=== PATIENT | female | born 1995 | race Two or more races ===

== ENCOUNTER 2018-07-23 14:53 | Outpatient (CLI) | payer OTHER ==
[2018-07-23] MEDS: ACETAMINOPHEN 500 MG TAB PO (16:10)
== END 2018-07-23 17:24 | disposition home or self-care (01) ==
LOC: M LDO 14:53
DX: O26.893 Other specified pregnancy related conditions, third trimester (principal); R10.30 Lower abdominal pain, unspecified; R10.2 Pelvic and perineal pain; Z3A.34 34 weeks gestation of pregnancy
CPT/HCPCS: 59025

== ENCOUNTER → 2018-08-22 | Outpatient (REF) | payer OTHER | LOC: M LAB REF 17:00 | DX: Z34.83 Encounter for supervision of other normal pregnancy, third trimester (principal) ==

== ENCOUNTER 2018-09-01 11:34 | Inpatient (IN) | payer OTHER ==
[2018-09-01] MEDS: LR 1,000 ML IV ×2 (12:55→17:12)
[2018-09-01 13:05] LABS: HEMATOCRIT 32.4 % (36.0-47.0); HEMOGLOBIN 10.9 g/dl (12.0-15.5); MEAN CORPUSCULAR HEMOGLOBIN 31.3 pg (27.0-33.0); MEAN CORPUSCULAR HGB CONC 33.6 g/dl (32.0-36.5); MEAN CORPUSCULAR VOLUME 93.1 fl (80.0-96.0); PLATELET COUNT, AUTOMATED 226 10^3/uL (150-450); RED BLOOD COUNT 3.48 10^6/uL (4.00-5.40); RED CELL DISTRIBUTION WIDTH 13.4 % (11.5-14.5)
[2018-09-01] MEDS: OXYTOCIN DRIP 30 UNITS in APPROPRIATE DILUENT 1 EA IV (13:13)
[2018-09-01] MEDS ORDERED: FENTANYL 2MCG/ML ROPIVACAINE 0.2% IN 0.9% NACL 100ML IVBAG As Ordered (19:42)
[2018-09-01] MEDS ORDERED: NALOXONE INJ 0.4 MG/1 ML VIAL (J2310) IV (20:00)
[2018-09-01] MEDS ORDERED: EPIDURAL/PCA KEYS XX (20:00)
[2018-09-01] MEDS ORDERED: EPIDURAL COMMENT XX (20:00)
[2018-09-01] MEDS ORDERED: LACTATED RINGER'S 1000 ML IV (20:00)
[2018-09-01] MEDS ORDERED: ePHEDrine SULFATE 25 MG/5 ML(5MG/ML) SYRINGE IV (20:00)
[2018-09-01] MEDS ORDERED: ONDANSETRON 4MG/2ML VIAL (J2405) IV (20:00)
[2018-09-01] MEDS ORDERED: diphenhydrAMINE INJ 50MG/ML VIAL (J1200) IV (20:00)
[2018-09-01] MEDS: FENTANYL/ROPIVACAINE/NACL BAG 100 ML EPIDURAL (20:00)
[2018-09-01] MEDS ORDERED: REFRIGERATOR IV KEYS XX (20:00)
[2018-09-02] MEDS ORDERED: DOCUSATE SODIUM 100 MG CAP PO (02:15)
[2018-09-02] MEDS ORDERED: OXYTOCIN DRIP 30 UNITS in APPROPRIATE DILUENT 1 EA IV (02:15)
[2018-09-02] MEDS ORDERED: METHYLERGONOVINE MALEATE 0.2 MG TAB PO (02:15)
[2018-09-02] MEDS ORDERED: IBUPROFEN 800 MG TAB PO (02:15)
[2018-09-02] MEDS ORDERED: DIBUCAINE 1% OINTMENT 30GM TOP (02:15)
[2018-09-02] MEDS ORDERED: ACETAMINOPHEN 500 MG TAB PO (02:15)
[2018-09-02] MEDS ORDERED: ONDANSETRON 4MG/2ML VIAL (J2405) IV (02:15)
[2018-09-02] MEDS: FENTANYL/ROPIVACAINE/NACL BAG 100 ML EPIDURAL (02:28)
[2018-09-02 04:03] LABS: HBSAG L&D NEGATIVE (NEGATIVE)
[2018-09-02] MEDS: PRENATAL VITAMINS CHEWABLE TABLET PO (12:36)
[2018-09-02] MEDS: RHOGAM 300 MCG (1500 IU) INJ (J2790) IM (15:20)
[2018-09-02] MEDS: MEASLES,MUMPS,RUBELLA VACCINE INJ (MMR-II) (90707) SC (15:20)
[2018-09-03] MEDS: PRENATAL VITAMINS CHEWABLE TABLET PO (08:02)
== END 2018-09-03 16:00 | disposition home or self-care (01) | DRG 807 ==
LOC: M LDO 11:34 → M OBS 09-02 05:17 → M LDI 12:27
PROVIDERS: Specialist
PROC: 3E033VJ Introduction of Other Hormone into Peripheral Vein, Percutaneous Approach (ICD-10-PCS; 2018-09-01)
PROC: 10E0XZZ Delivery of Products of Conception, External Approach (ICD-10-PCS; principal; 2018-09-02)
DX: O48.0 Post-term pregnancy (principal); Z37.0 Single live birth; Z3A.40 40 weeks gestation of pregnancy

== ENCOUNTER → 2019-01-28 | Outpatient (CLI) | payer SELFPAY ==
[~2019-01-28] MED LIST: IBUP-1114 PO; MAPA500T2 PO; PRENTAB9 PO
--- NOTE | 2019-01-28 07:56 | REP ---
Clinical: Dating and viability. Technique: Transabdominal first trimester obstetrical ultrasound with color Doppler evaluation. Findings: Live for early diamniotic dichorionic twin intrauterine is appreciated. Gestational age by LMP 8 weeks 5 days with estimated date of delivery 09/04/2019. TWIN A: Gestational sac with yolk sac and pole identified. Portis-rump length of 23 mm corresponds to 9 weeks 0 days gestational age with estimated date of delivery 09/02/2019 . heart rate equals 190 beats per minute. No gross abnormalities are identified. TWIN B: Gestational sac with yolk sac and pole identified. Portis-rump length of 22 mm corresponds to 8 weeks 6 days gestational age with estimated date of delivery 09/03/2019 . heart rate equals 167 beats per minute. No gross abnormalities are identified. Impression: 1. Early diamniotic dichorionic twin intrauterine at 9 weeks 0 days gestational age with an estimated date of delivery based on current examination 09/02/2019. 2. Complete anatomical assessment should be performed and 19-20 weeks. Electronically Signed by Valdemar Hankins MD 01/28/2019 07:47 A
== END ==
LOC: M RAD 06:15
PROVIDERS: ATTEND Nurse Practitioner Family
DX: O30.041 Twin pregnancy, dichorionic/diamniotic, first trimester (principal); Z3A.09 9 weeks gestation of pregnancy

== ENCOUNTER → 2019-02-13 | Outpatient (CLI) | payer SELFPAY ==
[2019-02-13 19:06] LABS: BASO % 0.6 % (0.0-1.0); EOS # 0.1 10^3/uL (0.0-0.50); HEMATOCRIT 37.8 % (36.0-47.0); HEMOGLOBIN 12.6 g/dl (12.0-15.5); LYMPH # 1.5 10^3/uL (1.5-6.5); LYMPH % 31.3 % (24.0-44.0); MEAN CORPUSCULAR HGB CONC 33.3 g/dl (32.0-36.5); MEAN CORPUSCULAR VOLUME 95.9 fl (80.0-96.0); MONO # 0.4 10^3/uL (0.0-0.8); MONO % 9.1 % (0.0-5.0); NEUTROPHILS # 2.8 10^3/uL (1.8-7.7); NEUTROPHILS % 57.6 % (36.0-66.0); PLATELET COUNT, AUTOMATED 285 10^3/uL (150-450); RED BLOOD COUNT 3.94 10^6/uL (4.00-5.40); WHITE BLOOD COUNT 4.9 10^3/uL (4.0-10.0)
[2019-02-13 22:07] LABS: HIV 1&2 SCREEN CENTAUR NEGATIVE (NEGATIVE)
[2019-02-13 22:44] LABS: CHLAMYDIA DNA AMPLIFICATION NEGATIVE (NEGATIVE); GC DNA AMPLIFICATION NEGATIVE (NEGATIVE)
[2019-02-15 12:30] LABS: HEPATITIS C VIRUS ABY INDEX 0.2 INDEX (<0.8); RUBELLA IgG QUALITATIVE IMMUNE (IMMUNE)
== END ==
LOC: M SMT 14:15
PROVIDERS: ATTEND Obstetrics & Gynecology
DX: Z34.81 Encounter for supervision of other normal pregnancy, first trimester (principal); Z3A.00 Weeks of gestation of pregnancy not specified